=== PATIENT | female | born 1995 | race Caucasian/White ===

== ENCOUNTER 2019-07-29 10:41 | Emergency (ER) | payer OTHER, MEDICAID ==
[~2019-07-29] VITALS: Ht 152.4 cm; Wt 44.5 kg
[2019-07-29] MEDS ORDERED: LIDOCAINE 1%-EPI 1:100,000 20 ML VIAL ONE (10:58)
[2019-07-29] MEDS ORDERED: TDAP [DIPH/PERTUSSIS/TET] 0.5 ML VIAL IM ONE ×2 (10:59→11:00)
[2019-07-29] MEDS ORDERED: LIDOCAINE 1%-EPI 1:100,000 50 ML VIAL IJ ONE (11:00)
--- NOTE | 2019-07-29 11:07 | NUR ---
bib lapd for otb. L elbow, LLE cellulitis. reports pain. no acute distress. rr even and unlabored on ra. ready for eval.
--- NOTE | 2019-07-29 11:10 | NUR ---
PA AT BEDSIDE FOR I&D
--- NOTE | 2019-07-29 11:52 | NUR ---
Patient discharged to [facility] in stable condition. Written and verbal after care instructions given. Patient verbalizes understanding of instruction.
[2019-07-29 11:57] VITALS: BP 112/65
== END 2019-07-29 11:58 ==
LOC: ER 10:49
DX: L02.416 Cutaneous abscess of left lower limb (principal); L02.414 Cutaneous abscess of left upper limb; E11.9 Type 2 diabetes mellitus without complications
CPT/HCPCS: 10061; 90471; 90715; 99284; J3490